=== PATIENT | female | born 1970 | race American Indian/Alaskan Native ===

== ENCOUNTER 2019-10-24 10:11 | Emergency (ER) | payer OTHER, MEDICARE ==
[2019-10-24] MEDS ORDERED: IBUPROFEN 800 MG TAB ONE (12:46)
[2019-10-24] MEDS: IBUPROFEN 800 MG TAB PO ONE ×2 (13:04→13:27)
[2019-10-24] MEDS ORDERED: predniSONE 20 MG TAB PO ONE (13:15)
[2019-10-24] MEDS ORDERED: KETOROLAC 30 MG/1 ML INJ IM ONE (13:15)
--- NOTE | 2019-10-24 13:23 | Emergency Department Report ---
ED Neck Pain/Injury HPI - General Chief Complaint: Neck Pain/Injury Stated Complaint: NECK PAIN Time Seen by Provider: 10/24/19 13:03 Mode of arrival: Wheelchair Limitations: No Limitations - History of Present Illness Initial Comments: This is a 49-year-old female nontoxic, well nourished in appearance, no acute signs of distress presents to the ED with c/o of acute on chronic left sided upper back pain x3 years. Patient stated that the past 2 days she was moving and developed this pain. Patient denies any radiation of pain. Patient denies any trauma. Denies any bladder or bowel instability. Patient denies any urinary symptoms. Denies any fever, chills, nausea, vomiting, headache, stiff neck, chest pain or shortness of breath. Patient denies any numbness or ting ling. Patient stated allegies to [facility] with no significant PMH. MD Complaint: upper back pain -: year(s) (3) Severity: mild Severity scale (0 -10): 3 Quality: aching Consistency: intermittent Improves With: immobilization Worsens With: movement of neck Associated Symptoms: none. denies: headache, fever, numbness, tingling, weakness, vertigo, difficulty walking, swollen glands, difficulty swallowing, nausea, vomiting Treatments Prior to Arrival: none - Related Data Previous Rx's Medication Instructions Recorded Last Taken Type Clindamycin [Clindamycin CAP] 300 mg PO Q6H #40 capsule 02/12/16 Unknown Rx traMADoL [Ultram] 50 mg PO Q6HR PRN #20 tablet 02/12/16 Unknown Rx Acetaminophen/Codeine [Tylenol #3] 1 tab PO Q6H PRN #20 tab 02/28/16 Unknown Rx Erythromycin Base [Erythromycin] 500 mg PO QID #40 tab 02/28/16 Unknown Rx Ibuprofen [Motrin 800 MG tab] 800 mg PO Q8HR PRN #50 tablet 02/28/16 Unknown Rx ALBUTEROL Inhaler(NF) [VENTOLIN 2 puff IH PRN #1 inha 12/29/18 Unknown Rx Inhaler(NF)] Benzonatate [Tessalon Perles] 100 mg PO Q8HR #20 capsule 12/29/18 Unknown Rx Cyclobenzaprine [Flexeril] 10 mg PO QHS PRN #10 tablet 10/24/19 Unknown Rx Naproxen 500 mg PO Q12H PRN #20 tablet 10/24/19 Unknown Rx Allergies Allergy/AdvReac Type Severity Reaction Status Date / Time Penicillins Allergy Rash Verified 12/29/18 11:46 ED Review of Systems ROS: Stated complaint: NECK PAIN Other details as noted in HPI Constitutional: denies: chills, fever Eyes: denies: eye pain, eye discharge, vision change ENT: denies: ear pain, throat pain Respiratory: denies: cough, shortness of breath, wheezing Cardiovascular: denies: chest pain, palpitations Endocrine: no symptoms reported Gastrointestinal: denies: abdominal pain, nausea, diarrhea Genitourinary: denies: urgency, dysuria, discharge Musculoskeletal: denies: back pain, joint swelling, arthralgia Skin: denies: rash, lesions Neurological: denies: headache, weakness, paresthesias Psychiatric: denies: anxiety, depression Hematological/Lymphatic: denies: easy bleeding, easy bruising ED Past Medical Hx - Past Medical History Previous Medical History?: Yes Hx Psychiatric Treatment: Yes (bipolar, schizophrenia) Hx Asthma: Yes Additional medical history: Manic depression .schizophrenia - Surgical History Past Surgical History?: No Additional Surgical History: Manic depression .schizophrenia - Social History Smoking Status: Never Smoker Substance Use Type: None - Medications Home Medications: Home Medications Medication Instructions Recorded Confirmed Last Taken Type Clindamycin [Clindamycin CAP] 300 mg PO Q6H #40 capsule 02/12/16 Unknown Rx traMADoL [Ultram] 50 mg PO Q6HR PRN #20 tablet 02/12/16 Unknown Rx Acetaminophen/Codeine [Tylenol #3] 1 tab PO Q6H PRN #20 tab 02/28/16 Unknown Rx Erythromycin Base [Erythromycin] 500 mg PO QID #40 tab 02/28/16 Unknown Rx Ibuprofen [Motrin 800 MG tab] 800 mg PO Q8HR PRN #50 tablet 02/28/16 Unknown Rx ALBUTEROL Inhaler(NF) [VENTOLIN 2 puff IH PRN #1 inha 12/29/18 Unknown Rx Inhaler(NF)] Benzonatate [Tessalon Perles] 100 mg PO Q8HR #20 capsule 12/29/18 Unknown Rx Cyclobenzaprine [Flexeril] 10 mg PO QHS PRN #10 tablet 10/24/19 Unknown Rx Naproxen 500 mg PO Q12H PRN #20 tablet 10/24/19 Unknown Rx ED Physical Exam - General Limitations: No Limitations General appearance: alert, in no apparent distress - Head Head exam: Present: atraumatic, normocephalic - Neck Neck exam: Present: normal inspection, full ROM. Absent: tenderness, meningismus, lymphadenopathy - Extremities Exam Extremities exam: Present: normal inspection, full ROM, normal capillary refill. Absent: tenderness, joint swelling - Back Exam Back exam: Present: normal inspection, full ROM, paraspinal tenderness (left cervical paraspinal area). Absent: tenderness, CVA tenderness (R), CVA tenderness (L), muscle spasm, vertebral tenderness, rash noted - Neurological Exam Neurological exam: Present: alert, oriented X3, normal gait - Psychiatric Psychiatric exam: Present: normal affect, normal mood - Skin Skin exam: Present: warm, dry, intact, normal color. Absent: rash ED Course Vital Signs 10/24/19 10/24/19 10:20 13:04 Temperature 98.8 F Pulse Rate 91 H Respiratory 16 18 Rate Blood Pressure 141/87 [Left] O2 Sat by Pulse 98 Oximetry - Reevaluation(s) Reevaluation #1: 10/24/19 13:21 Patient is speaking in full sentences with no signs of distress noted. ED Medical Decision Making - Medical Decision Making This is a 49-year-old female that presents with upper back strain. Patient is stable was examined by me. There is no spinal tenderness. There is no cauda equina syndrome during examination. No bladder or bowel instability. Patient received Toradol 30 mg IM and prednisone in the ED which stated that her symptoms has resolved and subsided. Patient is discharged with muscle relaxant and Motrin. Patient was instructed not to operate any machinery while taking muscle relaxant as they cause her drowsiness. Patient was referred to Follow-up with a primary care doctor in 3-5 days or if symptoms worsen and continue return to emergency room as soon as possible. At time of discharge, the patient does not seem toxic or ill in appearance. No acute signs of distress noted. Patient agrees to discharge treatment plan of care. No further questions noted by the patient. This chart is dictated with using [employer] Critical care attestation.: If time is entered above; I have spent that time in minutes in the direct care of this critically ill patient, excluding procedure time. ED Disposition Clinical Impression: Cervical muscle strain Qualifiers: Encounter type: initial encounter Qualified Code(s): S16.1XXA - Strain of muscle, fascia and tendon at neck level, initial encounter Disposition: TO HOME OR SELFCARE Is pt being admited?: No Does the pt Need Aspirin: No Condition: Stable Instructions: Muscle Strain (ED), Cyclobenzaprine (By mouth) Additional Instructions: Follow-up with your primary care doctor in 3-5 days or if symptoms worsen such as bladder or bowel stability, chest pain, short of breath, numbness or tingling sensation in extremities, headache, dizziness, visual changes, nausea vomiting, or abdominal pain, return back to emergency room as was possible. Take ibuprofen and Flexeril as prescribed. Do not operate heavy machinery while taking Flexeril due to sedation Prescriptions: Cyclobenzaprine [Flexeril] 10 mg PO QHS PRN #10 tablet PRN Reason: Muscle Spasm Naproxen 500 mg PO Q12H PRN #20 tablet PRN Reason: Cough Referrals: TIFFANIE BOYD MD [Primary Care Provider] - 3-5 Days PRIMARY CARE, [Referring] - 3-5 Days KATHERINE ROCA MD [Staff Physician] - 3-5 Days [facility] [Outside] - 3-5 Days Forms: Work/School Release Form(ED)
[2019-10-24 14:06] VITALS: BP 140/80
== END 2019-10-24 14:04 | disposition home or self-care (01) ==
LOC: ED 10:11
DX: S16.1XXA Strain of muscle, fascia and tendon at neck level, initial encounter (principal); J45.909 Unspecified asthma, uncomplicated; F31.9 Bipolar disorder, unspecified; F20.89 Other schizophrenia; Z79.899 Other long term (current) drug therapy; Z88.0 Allergy status to penicillin; X58.XXXA Exposure to other specified factors, initial encounter; Y93.89 Activity, other specified; Y92.89 Other specified places as the place of occurrence of the external cause; Y99.8 Other external cause status
CPT/HCPCS: 96372; 99283; J1885; J7512

== ENCOUNTER 2021-12-23 09:03 | Emergency (ER) | payer MEDICARE ==
[2021-12-23 09:21] VITALS: BP 148/79
--- NOTE | 2021-12-23 09:21 | Emergency Department Report ---
ED ENT HPI - General Stated complaint: LEFT SIDE OF MOUTH ABCESS Time Seen by Provider: 12/23/21 09:13 Source: patient, RN notes reviewed Limitations: No Limitations - History of Present Illness Initial comments: This is a 51-year-old female nontoxic, well nourished in appearance, no acute signs of distress presents to the ED with c/o of left upper toothache x several days. Patient denies following up with a dentist. Patient describes toothache as aching level of 8 out of 10. Patient denies any facial swelling. Patient denies any numbness, tingling, fever, chills, headache, stiff neck, abdominal pain, chest pain, shortness of breath. Patient denies any drug allergies or significant past medical history. MD complaint: tooth pain -: days(s) Location: tooth # 1 - pain here Severity: mild Severity scale (0 -10): 8 Quality: aching Consistency: constant Improves with: none Worsens with: none Context- Dental: history of dental caries, poor dental care Associated Symptoms: gum swelling, toothache. denies: fever, cough, pain with swallowing, sore throat, tinnitus, hearing loss, discharge from ear, rhinorrhea - Related Data Previous Rx's Medication Instructions Recorded Last Taken Type Clindamycin [Clindamycin CAP] 300 mg PO Q6H #40 capsule 02/12/16 Unknown Rx traMADoL [Ultram] 50 mg PO Q6HR PRN #20 tablet 02/12/16 Unknown Rx Acetaminophen/Codeine [Tylenol #3] 1 tab PO Q6H PRN #20 tab 02/28/16 Unknown Rx Erythromycin Base [Erythromycin] 500 mg PO QID #40 tab 02/28/16 Unknown Rx Ibuprofen [Motrin 800 MG tab] 800 mg PO Q8HR PRN #50 tablet 02/28/16 Unknown Rx ALBUTEROL Inhaler(NF) [VENTOLIN 2 puff IH PRN #1 inha 12/29/18 Unknown Rx Inhaler(NF)] Benzonatate [Tessalon Perles] 100 mg PO Q8HR #20 capsule 12/29/18 Unknown Rx Cyclobenzaprine [Flexeril] 10 mg PO QHS PRN #10 tablet 10/24/19 Unknown Rx Naproxen 500 mg PO Q12H PRN #20 tablet 10/24/19 Unknown Rx Chlorhexidine Mouthwash [Peridex] 15 ml MM BID #1 bottle 12/23/21 Unknown Rx Clindamycin [Clindamycin CAP] 300 mg PO Q8H #21 cap 12/23/21 Unknown Rx Allergies Allergy/AdvReac Type Severity Reaction Status Date / Time Penicillins Allergy Rash Verified 12/29/18 11:46 ED Dental HPI - General Stated complaint: LEFT SIDE OF MOUTH ABCESS Time Seen by Provider: 12/23/21 09:13 - Related Data Previous Rx's Medication Instructions Recorded Last Taken Type Clindamycin [Clindamycin CAP] 300 mg PO Q6H #40 capsule 02/12/16 Unknown Rx traMADoL [Ultram] 50 mg PO Q6HR PRN #20 tablet 02/12/16 Unknown Rx Acetaminophen/Codeine [Tylenol #3] 1 tab PO Q6H PRN #20 tab 02/28/16 Unknown Rx Erythromycin Base [Erythromycin] 500 mg PO QID #40 tab 02/28/16 Unknown Rx Ibuprofen [Motrin 800 MG tab] 800 mg PO Q8HR PRN #50 tablet 02/28/16 Unknown Rx ALBUTEROL Inhaler(NF) [VENTOLIN 2 puff IH PRN #1 inha 12/29/18 Unknown Rx Inhaler(NF)] Benzonatate [Tessalon Perles] 100 mg PO Q8HR #20 capsule 12/29/18 Unknown Rx Cyclobenzaprine [Flexeril] 10 mg PO QHS PRN #10 tablet 10/24/19 Unknown Rx Naproxen 500 mg PO Q12H PRN #20 tablet 10/24/19 Unknown Rx Chlorhexidine Mouthwash [Peridex] 15 ml MM BID #1 bottle 12/23/21 Unknown Rx Clindamycin [Clindamycin CAP] 300 mg PO Q8H #21 cap 12/23/21 Unknown Rx Allergies Allergy/AdvReac Type Severity Reaction Status Date / Time Penicillins Allergy Rash Verified 12/29/18 11:46 ED Review of Systems ROS: Stated complaint: LEFT SIDE OF MOUTH ABCESS Other details as noted in HPI Comment: All other systems reviewed and negative Constitutional: denies: chills, fever Eyes: denies: eye pain, eye discharge, vision change ENT: dental pain. denies: ear pain, throat pain, hearing loss, epistaxis, congestion Respiratory: denies: cough, shortness of breath, wheezing Cardiovascular: denies: chest pain, palpitations Endocrine: no symptoms reported Gastrointestinal: denies: abdominal pain, nausea, diarrhea Genitourinary: denies: urgency, dysuria, discharge Musculoskeletal: denies: back pain, joint swelling, arthralgia Skin: denies: rash, lesions Neurological: denies: headache, weakness, paresthesias Psychiatric: denies: anxiety, depression Hematological/Lymphatic: denies: easy bleeding, easy bruising ED Past Medical Hx - Past Medical History Hx Psychiatric Treatment: Yes (bipolar, schizophrenia) Hx Asthma: Yes Additional medical history: Manic depression .schizophrenia - Surgical History Additional Surgical History: Manic depression .schizophrenia - Social History Smoking Status: Never Smoker Substance Use Type: None - Medications Home Medications: Home Medications Medication Instructions Recorded Confirmed Last Taken Type Clindamycin [Clindamycin CAP] 300 mg PO Q6H #40 capsule 02/12/16 Unknown Rx traMADoL [Ultram] 50 mg PO Q6HR PRN #20 tablet 02/12/16 Unknown Rx Acetaminophen/Codeine [Tylenol #3] 1 tab PO Q6H PRN #20 tab 02/28/16 Unknown Rx Erythromycin Base [Erythromycin] 500 mg PO QID #40 tab 02/28/16 Unknown Rx Ibuprofen [Motrin 800 MG tab] 800 mg PO Q8HR PRN #50 tablet 02/28/16 Unknown Rx ALBUTEROL Inhaler(NF) [VENTOLIN 2 puff IH PRN #1 inha 12/29/18 Unknown Rx Inhaler(NF)] Benzonatate [Tessalon Perles] 100 mg PO Q8HR #20 capsule 12/29/18 Unknown Rx Cyclobenzaprine [Flexeril] 10 mg PO QHS PRN #10 tablet 10/24/19 Unknown Rx Naproxen 500 mg PO Q12H PRN #20 tablet 10/24/19 Unknown Rx Chlorhexidine Mouthwash [Peridex] 15 ml MM BID #1 bottle 12/23/21 Unknown Rx Clindamycin [Clindamycin CAP] 300 mg PO Q8H #21 cap 12/23/21 Unknown Rx ED Physical Exam - General General appearance: alert, in no apparent distress - Head Head exam: Present: atraumatic, normocephalic - Eye Eye exam: Present: normal appearance - Expanded ENT Exam Expanded Ear exam: Present: normal external inspection Mouth exam: Present: normal external inspection. Absent: drooling, trismus, muffled voice Teeth exam: Present: dental caries, fractured tooth #, dental tenderness #, gingival enlargement, other (no facial swelling) Throat exam: Positive: normal inspection, other (uvula midline. no dental abscess). Negative: tonsillar erythema, tonsillomegaly, tonsillar exudate, R peritonsillar mass, L peritonsillar mass - Neck Neck exam: Present: normal inspection, full ROM. Absent: lymphadenopathy - Respiratory Respiratory exam: Absent: respiratory distress - Cardiovascular Cardiovascular Exam: Present: regular rate - Extremities Exam Extremities exam: Present: full ROM - Back Exam Back exam: Present: full ROM - Neurological Exam Neurological exam: Present: alert, oriented X3, normal gait - Psychiatric Psychiatric exam: Present: normal affect, normal mood - Skin Skin exam: Present: warm, dry, intact, normal color. Absent: rash ED Course Vital Signs 12/23/21 09:19 Temperature 99 F Pulse Rate 80 Respiratory 18 Rate Blood Pressure 148/79 [Right] O2 Sat by Pulse 97 Oximetry - Reevaluation(s) Reevaluation #1: 12/23/21 09:22 Patient is speaking in full sentences with no signs of distress noted. ED Medical Decision Making - Medical Decision Making This is a 51-year-old female that presents with gingivitis and dental caries. Patient is stable and was examined by me. Exam does not consistent with an abscess. Patient with discharge with appropriate treatment. Patient was instructed to follow-up with a dentist doctor in 3-5 days or if symptoms worsen and continue return to emergency room as soon as possible. Patient was in structed not to operate any machinery when taking Ultram due to drowsiness. At time of discharge, the patient does not seem toxic or ill in appearance. No acute signs of distress noted. Patient agrees to discharge treatment plan of care. No further questions noted by the patient. Critical care attestation.: If time is entered above; I have spent that time in minutes in the direct care of this critically ill patient, excluding procedure time. ED Disposition Clinical Impression: Dental caries, Gingivitis Disposition: 01 HOME / SELF CARE / HOMELESS Is pt being admited?: No Does the pt Need Aspirin: No Condition: Stable Additional Instructions: Follow-up with a dentist doctor in 3-5 days or if symptoms worsen and continue return to emergency room as soon as possible. Prescriptions: Clindamycin [Clindamycin CAP] 300 mg PO Q8H #21 cap Chlorhexidine Mouthwash [Peridex] 15 ml MM BID #1 bottle Referrals: PRIMARY CAREMD [Referring] - 3-5 Days KATHERINE ROCA MD [Staff Physician] - 3-5 Days Time of Disposition: 09:24
== END 2021-12-23 09:25 | disposition home or self-care (01) ==
LOC: ED 09:03
DX: K05.10 Chronic gingivitis, plaque induced (principal); K02.9 Dental caries, unspecified; F31.9 Bipolar disorder, unspecified; F20.9 Schizophrenia, unspecified; Z88.0 Allergy status to penicillin; Z79.899 Other long term (current) drug therapy
CPT/HCPCS: 99282

== ENCOUNTER 2022-05-14 06:03 | Emergency (ER) | payer MEDICARE ==
[2022-05-14 12:20] LABS: Color,Urine Yellow (Yellow)
[2022-05-14 12:31] LABS: Bacteria,Urine 1+ /HPF (Negative); Mucus,Urine FEW /HPF
[2022-05-14] MEDS ORDERED: IBUPROFEN 800 MG TAB PO ONE (12:38)
[2022-05-14] MEDS ORDERED: PHENAZOPYRIDINE 100 MG TAB PO ONE (12:38)
--- NOTE | 2022-05-14 12:38 | Emergency Department Report ---
ED Dysuria HPI - HPI Chief Complaint: Abdominal Pain Stated Complaint: FLANK PAIN Time Seen by Provider: 05/14/22 11:17 Duration: 3 Days Location of Discomfort: Suprapubic Severity: Mild Symptoms: Dysuria: Yes, Frequency: Yes, Suprapubic Pain: Yes, Flank Pain: Yes, Fever: No, Hematuria: No, Abdominal Pain: No, Previous UTI's: Yes Other History: 52 YO OLD WITH UTI. DYSURIA. FREQ IN ER. NO N/V/D. NO VAG DC OR BLEEDING. AMBULATORY. TAKING PO. THIS IS HER USUAL UTI PRESENTATION PER PT. 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 ED Review of Systems ROS: Stated complaint: FLANK PAIN Other details as noted in HPI Comment: All other systems reviewed and negative ED Past Medical Hx - Past Medical History Previous Medical History?: Yes Hx Psychiatric Treatment: Yes (bipolar, schizophrenia) Hx Asthma: Yes Additional medical history: Manic depression .schizophrenia - Surgical History Past Surgical History?: Yes Additional Surgical History: Manic depression .schizophrenia - Family History Family history: no significant - Social History Smoking Status: Never Smoker Substance Use Type: None - Medications Home Medications: Home Medications Medication Instructions Recorded Confirmed Last Taken Type Ibuprofen [Motrin] 800 mg PO Q8HR PRN #30 tablet 05/14/22 Unknown Rx Sulfamethoxazole/Trimethoprim 1 each PO BID #10 tablet 05/14/22 Unknown Rx [Bactrim DS TAB] Dysuria Exam - Exam General: Vital signs noted. No distress. Alert and acting appropriately. Exam: Yes Moist Mucous Membranes, No CVA Tenderness, No Abdominal Tenderness, No Rigidity or Guarding Labs: Lab Results 05/14/22 Range/Units 11:25 Urine RBC (Auto) 1.0 (0.0-6.0) /HPF U Epithel Cells (Auto) 2.0 (0-13.0) /HPF ED Course Vital Signs 05/14/22 06:15 Temperature 98 F Respiratory 16 Rate Blood Pressure 135/95 [Right] O2 Sat by Pulse 96 Oximetry ED Medical Decision Making - Medical Decision Making Lab Results 05/14/22 Range/Units 11:25 Urine Color Yellow (Yellow) Urine Turbidity Slightly-cloudy (Clear) Specific [place] (Man) 1.012 (1.003-1.030) Ur Protein (Man) Negative (Negative) mg/dL Ur Ketones (Man) Negative (Negative) Ur Nitrite (Man) Negative (Negative) Urine Bilirubin (Man) Negative (Negative) Urine Ictotest Not Reportable Leukocyte Esterase (Man) Negative (Negative) Urine WBC (Auto) 2.0 (0.0-6.0) /HPF Urine RBC (Auto) 1.0 (0.0-6.0) /HPF U Epithel Cells (Auto) 2.0 (0-13.0) /HPF Urine Bacteria (Auto) 1+ (Negative) /HPF Urine RBC (Manual) Negative (Negative) Urine Mucus Few /HPF Urine HCG, Qual Negative (Negative) Vital Signs 05/14/22 06:15 Temperature 98 F Respiratory 16 Rate Blood Pressure 135/95 [Right] O2 Sat by Pulse 96 Oximetry HX UTI HAS BEEN TAKING OTC MEDS DYSURIA/FREQUENCY NO N/V/D NO FEVER CHILLS PAIN NOT CONSISTENT WITH K STONE NO VAG DC OR BLEEDING AMBULATORY TAKING PO DC HOME WITH DC PLAN OF CARE INCLUDING DIET, MEDS, ACTIVITY AND FOLLOW UP SHE VERBALIZES UNDERSTANDING OF PLAN OF CARE - Differential Diagnosis RO UTI/PREG Critical care attestation.: If time is entered above; I have spent that time in minutes in the direct care of this critically ill patient, excluding procedure time. ED Disposition Clinical Impression: UTI (urinary tract infection) Disposition: 01 HOME / SELF CARE / HOMELESS Is pt being admited?: No Does the pt Need Aspirin: No Condition: Stable Instructions: Abdominal Pain (ED), Urinary Tract Infection, Adult, [id number] Additional Instructions: MEDS ORDERED TODAY DRINK A LOT OF WATER FOLLOW UP WITH PCP AFTER YOU FINISH ANTIBIOTICS EAT A LOT OF YOGURT Referrals: KATHERINE ROCA MD [Primary Care Provider] - 3-5 Days Forms: Work/School Release Form(ED) Time of Disposition: 13:15
[2022-05-14 13:03] LABS: HCG Qualitative,Urine Negative (Negative)
[2022-05-14 14:09] VITALS: BP 123/87
== END 2022-05-14 14:09 | disposition home or self-care (01) ==
LOC: ED 06:03
DX: N39.0 Urinary tract infection, site not specified (principal); R10.30 Lower abdominal pain, unspecified; J45.909 Unspecified asthma, uncomplicated; F20.9 Schizophrenia, unspecified; F31.9 Bipolar disorder, unspecified; Z88.0 Allergy status to penicillin; Z79.899 Other long term (current) drug therapy
CPT/HCPCS: 81001; 81025; 99283

== ENCOUNTER 2022-05-16 18:33 | Emergency (ER) | payer MEDICARE ==
[2022-05-17] MEDS ORDERED: KETOROLAC 30 MG/1 ML INJ IM ONE (03:59)
[2022-05-17] MEDS ORDERED: LIDOCAINE-MPF (1%) 10 MG/1 ML VIAL 5 ML INFILTRATI ONE (03:59)
--- NOTE | 2022-05-17 04:09 | Emergency Department Report ---
ED Female HPI - General Chief complaint: Abdominal Pain Stated complaint: UTI Time Seen by Provider: 05/17/22 03:52 Source: patient, EMS Mode of arrival: Ambulatory Limitations: No Limitations - History of Present Illness Initial comments: Patient 52-year-old female who presents with dysuria frequency and urgency x1 week. States right flank pain radiating to right suprapubic. There is no hematuria patient denies history of renal stones. States she was treated for UTI 2 days ago however she was not able to obtain Bactrim as prescribed. Symptoms have worsened. There is no vaginal discharge. Patient denies possibility for STI. Requesting IM shot medication as she cannot obtain prescriptions. Patient denies fevers or chills there is no nausea or vomiting. MD Complaint: dysuria - Related Data Previous Rx's Medication Instructions Recorded Last Taken Type Ibuprofen [Motrin] 800 mg PO Q8HR PRN #30 tablet 05/14/22 Unknown Rx Phenazopyridine [Pyridium] 200 mg PO TID PRN #20 tab 05/14/22 Unknown Rx Sulfamethoxazole/Trimethoprim 1 each PO BID #10 tablet 05/14/22 Unknown Rx [Bactrim DS TAB] Allergies Allergy/AdvReac Type Severity Reaction Status Date / Time Penicillins Allergy Rash Verified 12/29/18 11:46 ED Review of Systems ROS: Stated complaint: UTI Other details as noted in HPI Constitutional: denies: chills, fever Eyes: denies: eye pain, eye discharge, vision change ENT: denies: ear pain, throat pain Respiratory: denies: cough, shortness of breath, wheezing Cardiovascular: denies: chest pain, palpitations Endocrine: no symptoms reported Gastrointestinal: denies: abdominal pain, nausea, diarrhea Genitourinary: urgency, dysuria, frequency. denies: hematuria, discharge, abnormal menses Musculoskeletal: denies: back pain, joint swelling, arthralgia Skin: denies: rash, lesions Neurological: denies: headache, weakness, paresthesias Psychiatric: denies: anxiety, depression Hematological/Lymphatic: denies: easy bleeding, easy bruising ED Past Medical Hx - Past Medical History Hx Psychiatric Treatment: Yes (bipolar, schizophrenia) Hx Asthma: Yes Additional medical history: Manic depression .schizophrenia - Surgical History Additional Surgical History: Manic depression .schizophrenia - Social History Smoking Status: Never Smoker Substance Use Type: None - Medications Home Medications: Home Medications Medication Instructions Recorded Confirmed Last Taken Type Ibuprofen [Motrin] 800 mg PO Q8HR PRN #30 tablet 05/14/22 Unknown Rx Phenazopyridine [Pyridium] 200 mg PO TID PRN #20 tab 05/14/22 Unknown Rx Sulfamethoxazole/Trimethoprim 1 each PO BID #10 tablet 05/14/22 Unknown Rx [Bactrim DS TAB] ED Physical Exam - General Limitations: No Limitations General appearance: alert, in no apparent distress - Head Head exam: Present: atraumatic, normocephalic - Eye Eye exam: Present: normal appearance, EOMI Pupils: Present: normal accommodation - ENT ENT exam: Present: mucous membranes moist - Neck Neck exam: Present: normal inspection, full ROM. Absent: tenderness - Respiratory Respiratory exam: Present: normal lung sounds bilaterally. Absent: respiratory distress, wheezes - Cardiovascular Cardiovascular Exam: Present: regular rate, normal rhythm, normal heart sounds. Absent: systolic murmur, diastolic murmur, rubs, gallop - GI/Abdominal GI/Abdominal exam: Present: soft, normal bowel sounds. Absent: distended, tenderness, guarding, rebound, bruit, hernia - Rectal Rectal exam: Present: deferred - Extremities Exam Extremities exam: Present: normal inspection, full ROM. Absent: tenderness - Back Exam Back exam: Present: normal inspection, full ROM, CVA tenderness (R). Absent: CVA tenderness (L) - Neurological Exam Neurological exam: Present: alert, oriented X3, CN II-XII intact, normal gait - Psychiatric Psychiatric exam: Present: normal affect, normal mood - Skin Skin exam: Present: warm, dry, intact, normal color. 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 Patient verbalized agreement and understanding of same patient will be DC'd to home in stable condition at this time. Patient is currently alert oriented x3 amatory with steady gait with no acute distress. There is no fevers no chills no abdominal pain no nausea or vomiting. Critical care attestation.: If time is entered above; I have spent that time in minutes in the direct care of this critically ill patient, excluding procedure time. ED Disposition Clinical Impression: Dysuria Disposition: 01 HOME / SELF CARE / HOMELESS Is pt being admited?: No Does the pt Need Aspirin: No Condition: Stable Instructions: Abdominal Pain (ED), Dysuria Referrals: [facility] [Provider Group] - 3-5 Days Forms: Work/School Release Form(ED) Time of Disposition: 04:12
[2022-05-17 04:55] VITALS: BP 143/79
== END 2022-05-17 04:56 | disposition home or self-care (01) ==
LOC: ED 18:33
DX: R30.0 Dysuria (principal); F31.9 Bipolar disorder, unspecified; J45.909 Unspecified asthma, uncomplicated; F17.200 Nicotine dependence, unspecified, uncomplicated; Z91.09 Other allergy status, other than to drugs and biological substances
CPT/HCPCS: 96372; 99283; J0696; J1885; J3490